=== PATIENT | male | born 1985 | race Two or more races ===

== ENCOUNTER 2023-10-16 17:33 | Emergency (ER) | payer BC, OTHER ==
[~2023-10-16] VITALS: Ht 180.3 cm; Wt 90.9 kg
[2023-10-16] MEDS: TETANUS-DIPTH-ACEL PERTUSSIS 0.5ML SYR Tdap IM ONE (21:25)
[2023-10-16] MEDS: CEPHALEXIN 250 MG CAP PO ONE (21:26)
[2023-10-16] MEDS: HYDROcodone-ACET 5/325MG TAB PO ONE (21:27)
[2023-10-16] MEDS ORDERED: IBUP1TAB5 PO (21:38)
[2023-10-16] MEDS ORDERED: BACL10TA PO (21:38)
[2023-10-16] MEDS ORDERED: CEPH500C PO (21:38)
[2023-10-16 21:58] VITALS: BP 132/76; PULSE 78; RESP 18; TEMP 98.8; O2SAT 98
== END 2023-10-16 22:00 | disposition home or self-care (01) ==
LOC: ER 17:33
DX: S01.511A Laceration without foreign body of lip, initial encounter (principal); S13.4XXA Sprain of ligaments of cervical spine, initial encounter; Y04.2XXA Assault by strike against or bumped into by another person, initial encounter; Y93.89 Activity, other specified; Y92.89 Other specified places as the place of occurrence of the external cause; Y99.8 Other external cause status
CPT/HCPCS: 70450; 70486; 72125; 90471; 90715; 96372